=== PATIENT | male | born 1955 | race Caucasian/White ===

== ENCOUNTER → 2017-08-19 | Day surgery (SDC) | payer BC | END | disposition home or self-care (01) | LOC: BMCIMAGING 07:30 | PROVIDERS: ATTEND Urology | PROC: 0VB03ZX Excision of Prostate, Percutaneous Approach, Diagnostic (ICD-10-PCS; principal; 2017-08-19) | DX: R97.20 Elevated prostate specific antigen [PSA] (principal) ==